=== PATIENT | male | born 1970 | race Caucasian/White ===

== ENCOUNTER 2022-04-30 21:20 | Emergency (ER) | payer MEDICAID ==
[~2022-04-30] VITALS: Ht 160 cm; Wt 63.5 kg
[2022-04-30 22:04] VITALS: BP 120/76
--- NOTE | 2022-04-30 22:08 | NUR ---
TO LOBBY A/W BED AMBULATORY
--- NOTE | 2022-04-30 22:50 | NUR ---
PT AMBULATED TO BED #9
[2022-04-30] MEDS ORDERED: MORPHINE SULFATE 10 MG/ML VIAL IVP ONE (23:00)
--- NOTE | 2022-04-30 23:06 | NUR ---
ER physician at bedside examining pt.
--- NOTE | 2022-04-30 23:24 | NUR ---
Pt to CT via wheelchair.
--- NOTE | 2022-04-30 23:26 | NUR ---
Pt returned from CT
--- NOTE | 2022-04-30 23:27 | NUR ---
Urine collected and sent to lab.
--- NOTE | 2022-04-30 23:35 | NUR ---
URINE COLLECTED AND SENT TO LAB
[2022-04-30 23:45] LABS: BASOPHILS % (AUTO) 0.8 % (0.0-2.0); EOSINOPHILS # (AUTO) 0.1 K/uL (0-0.4); EOSINOPHILS % (AUTO) 1.2 % (0.0-4.0); HEMATOCRIT 37.3 % (36-52); LYMPHOCYTES % (AUTO) 17.5 % (20.5-51.1); MEAN CORPUSCULAR HEMOGLOBIN 36 pg (27-31); MEAN CORPUSCULAR HGB CONC 35 g/dL (33-37); MEAN CORPUSCULAR VOLUME 101.5 fL (80-94); MONOCYTES # (AUTO) 0.3 K/uL (0.8-1.0); MONOCYTES % (AUTO) 5.5 % (1.7-9.3); NEUTROPHILS # (AUTO) 4.5 K/uL (1.8-7.7); PLATELET COUNT (AUTO) 184 K/uL (140-450); RED BLOOD CELL COUNT(AUTO) 3.68 MIL/uL (4.20-6.10)
--- NOTE | 2022-04-30 23:45 | NUR ---
#20g IV placed on left ac using aseptic technique, no infiltration noted.
[2022-05-01 00:06] LABS: APPEARANCE,URINE CLOUDY (CLEAR); BILIRUBIN,URINE NEGATIVE (NEGATIVE); BLOOD, URINE 1+ (NEGATIVE); COLOR,URINE YELLOW (YELLOW); LEUKOCYTE ESTERASE ,URINE NEGATIVE (NEGATIVE); NITRITE, URINE NEGATIVE (NEGATIVE); PH,URINE 5.5 (5.0-9.0); UGLUCOSE NEGATIVE (NEGATIVE)
[2022-05-01 00:13] LABS: ALBUMIN 4.2 g/dL (3.4-5.0); ANION GAP 7.7 (8-16); CARBON DIOXIDE 28.9 mmol/L (21-32); CREATININE 1.2 mg/dL (0.6-1.3); POTASSIUM 3.6 mmol/L (3.5-5.1); TOTAL BILIRUBIN 0.6 mg/dL (0.0-1.0)
[2022-05-01 00:17] LABS: RBC,URINE 0-5 /HPF (0-5); URINE AMORPHOUS URATE 3+ /HPF (None Seen); WBC,URINE 0-5 /HPF (0-5)
[2022-05-01 02:31] VITALS: BP 130/74
--- NOTE | 2022-05-01 02:31 | NUR ---
Patient discharged with v/s stable. Written and verbal after care instructions given and explained. Patient verbalized understanding. Ambulatory with steady gait. All questions addressed prior to discharge. Advised to follow up with PMD.
== END 2022-05-01 02:31 | disposition home or self-care (01) ==
LOC: MED 21:20
DX: R10.32 Left lower quadrant pain (principal); Z88.0 Allergy status to penicillin
CPT/HCPCS: 36415; 74176; 80053; 81001; 83690; 85025; 96374; 99284; J2270